=== PATIENT | female | born 1960 ===

== ENCOUNTER 2018-09-05 06:10 | Inpatient (IN) | payer MEDICARE ==
[2018-09-05] MEDS ORDERED: ATIVAN IV ONE (06:31)
[2018-09-05 06:52] LABS: Basophils # (Auto) 0.1 K/mm3 (0.0-0.1); Basophils % (Auto) 1.6 % (0.0-1.8); Eosinophils % (Auto) 0.2 % (0.0-4.3); Lymphocytes # (Auto) 2.8 K/mm3 (1.2-5.4); Lymphocytes % (Auto) 47.2 % (13.4-35.0); Mean Corpuscular HGB Conc 30 % (30-34); Mean Corpuscular Volume 71 fl (79-97); Monocytes # (Auto) 0.6 K/mm3 (0.0-0.8); Monocytes % (Auto) 9.6 % (0.0-7.3); Platelet Count 300 K/mm3 (140-440); Red Blood Count 4.93 M/mm3 (3.65-5.03)
[2018-09-05 06:53] LABS: Hemoglobin 10.5 gm/dl (10.1-14.3)
[2018-09-05 07:05] LABS: Alanine Aminotransferase 21 units/L (7-56); Albumin 3.4 g/dL (3.9-5); Bilirubin,Direct 0.4 mg/dL (0-0.2)
--- NOTE | 2018-09-05 07:13 | Emergency Department Report ---
ED General Adult HPI - General Chief complaint: Pain General Stated complaint: BODY PAIN X'S 1 WEEK Time Seen by Provider: 09/05/18 06:19 Source: patient, EMS Mode of arrival: Stretcher Limitations: No Limitations - History of Present Illness Initial comments: This is a type II diabetic history of hypertension 58-year-old woman who is a poor historian. She appears to have pressurized speech to some degree. She does admit to anxiety. She is not taking any psychiatric medications though. Perhaps she is noncompliant; family has stated that she has bipolar disorder. She is complaining of generalized weakness and difficulty caring for herself. She states she hasn't been unable to take a shower for 5 days. It seems like she may be saying that her urine output is diminished. However she is quite scattered and difficult to understand although she speaks [place] adequately. He does not report recent fever or chills. He does complain of some hurting all over. She denies chest or abdominal pain. She denies headache or any focal neurological changes. I think she is saying that she does have dyspnea on exertion. -: days(s) Consistency: intermittent Improves with: none Worsens with: none Associated Symptoms: shortness of breath, weakness. denies: confusion, chest pain, cough, diaphoresis, fever/chills, headaches, nausea/vomiting, rash, seizure, syncope - Related Data Allergies Allergy/AdvReac Type Severity Reaction Status Date / Time No Known Allergies Allergy Unverified 09/05/18 06:20 ED Review of Systems ROS: Stated complaint: BODY PAIN X'S 1 WEEK Other details as noted in HPI Constitutional: weakness. denies: chills, fever Eyes: denies: eye pain, eye discharge, vision change ENT: denies: ear pain, throat pain Respiratory: SOB with exertion. denies: cough, shortness of breath, wheezing Cardiovascular: denies: chest pain, palpitations Endocrine: no symptoms reported Gastrointestinal: denies: abdominal pain, nausea, diarrhea Genitourinary: denies: urgency, dysuria, discharge Musculoskeletal: as per HPI (some allodynia). denies: back pain, joint swelling, arthralgia Skin: denies: rash, lesions Neurological: denies: headache, weakness, paresthesias Psychiatric: denies: anxiety, depression Hematological/Lymphatic: denies: easy bleeding, easy bruising ED Past Medical Hx - Past Medical History Previous Medical History?: Yes Hx Hypertension: Yes Hx Congestive Heart Failure: Yes Hx Diabetes: Yes Hx Psychiatric Treatment: Yes (Per family bipolar) - Surgical History Past Surgical History?: No - Social History Smoking Status: Never Smoker Substance Use Type: None ED Physical Exam - General Limitations: No Limitations General appearance: alert, in no apparent distress, anxious - Head Head exam: Present: atraumatic, normocephalic - Eye Eye exam: Present: normal appearance. Absent: scleral icterus - ENT ENT exam: Present: mucous membranes moist - Neck Neck exam: Present: normal inspection - Respiratory Respiratory exam: Present: normal lung sounds bilaterally. Absent: respiratory distress - Cardiovascular Cardiovascular Exam: Present: regular rate, normal rhythm. Absent: systolic murmur, diastolic murmur, rubs, gallop - GI/Abdominal GI/Abdominal exam: Present: soft, normal bowel sounds. Absent: distended, tenderness, guarding, rebound, rigid - Extremities Exam Extremities exam: Present: normal inspection - Back Exam Back exam: Present: normal inspection. Absent: CVA tenderness (R) - Neurological Exam Neurological exam: Present: alert, oriented X3, CN II-XII intact. Absent: motor sensory deficit - Psychiatric Psychiatric exam: Present: anxious, flat affect - Skin Skin exam: Present: warm, dry, intact, normal color. Absent: rash ED Course Vital Signs 09/05/18 09/05/18 06:23 07:31 Temperature 97.9 F Pulse Rate 99 H 93 H Respiratory 20 18 Rate Blood Pressure 152/100 140/99 [Right] O2 Sat by Pulse 98 98 Oximetry - Reevaluation(s) Reevaluation #1: Attempting to obtain patient's medications. Elevated INR noted. Presume on Coumadin. Patient given empiric Violence although there is not yet any signs of a source or a SIRS syndrome. Repeat lactic acid of the value. There were problems with the patient's initial blood specimen. Hospitalist informed. CT abdomen is obtained for further screening for a source of infection. Patient declined straight cath for urinalysis. Further care and management per spitalist service. 09/05/18 08:55 ED Medical Decision Making - Lab Data Result diagrams: 09/05/18 06:26 09/05/18 06:26 Laboratory Results - last 24 hr 06/09/05/18 09/05/18 06:26 06:26 06:26 WBC 5.9 RBC 4.93 Hgb 10.5 Hct 35.0 MCV 71 L MCH 21 L MCHC 30 RDW 22.0 H Plt Count 300 Lymph % (Auto) 47.2 H [place] % (Auto) 9.6 H Eos % (Auto) 0.2 Baso % (Auto) 1.6 Lymph # 2.8 [place] # 0.6 Eos # 0.0 Baso # 0.1 Seg Neutrophils % 41.4 Seg Neutrophils # 2.4 Sodium 127 L Chloride 92.4 L BUN 11 Creatinine 0.8 Estimated GFR > 60 BUN/Creatinine Ratio 14 Glucose 417 H Calcium 8.5 Magnesium Total Bilirubin Direct Bilirubin Indirect Bilirubin AST ALT Alkaline Phosphatase CK-MB (CK-2) 1.7 Troponin T NT-Pro-B Natriuret Pep Total Protein Albumin Albumin/Globulin Ratio Plasma/Serum Alcohol < 0.01 09/05/18 06:26 WBC RBC Hgb Hct MCV MCH MCHC RDW Plt Count Lymph % (Auto) [place] % (Auto) Eos % (Auto) Baso % (Auto) Lymph # [place] # Eos # Baso # Seg Neutrophils % Seg Neutrophils # Sodium Chloride BUN Creatinine Estimated GFR BUN/Creatinine Ratio Glucose Calcium Magnesium 2.10 Total Bilirubin 1.00 Direct Bilirubin 0.4 H Indirect Bilirubin 0.6 AST 144 H ALT 21 Alkaline Phosphatase 74 CK-MB (CK-2) Troponin T < 0.010 NT-Pro-B Natriuret Pep 70277 H Total Protein 8.2 Albumin 3.4 L Albumin/Globulin Ratio 0.7 Plasma/Serum Alcohol Laboratory Results - last 24 hr 09/05/18 09/05/18 09/05/18 06:26 06:26 06:26 WBC 5.9 RBC 4.93 Hgb 10.5 Hct 35.0 MCV 71 L MCH 21 L MCHC 30 RDW 22.0 H Plt Count 300 Lymph % (Auto) 47.2 H [place] % (Auto) 9.6 H Eos % (Auto) 0.2 Baso % (Auto) 1.6 Lymph # 2.8 [place] # 0.6 Eos # 0.0 Baso # 0.1 Seg Neutrophils % 41.4 Seg Neutrophils # 2.4 PT INR APTT Sodium TNR Potassium TNR Chloride TNR Carbon Dioxide TNR Anion Gap TNR BUN TNR Creatinine TNR Estimated GFR TNR BUN/Creatinine Ratio TNR Glucose TNR Lactic Acid Calcium TNR Magnesium Total Bilirubin Direct Bilirubin Indirect Bilirubin AST ALT Alkaline Phosphatase Ammonia Total Creatine Kinase TNR CK-MB (CK-2) TNR CK-MB (CK-2) Rel Index TNR Troponin T NT-Pro-B Natriuret Pep Total Protein Albumin Albumin/Globulin Ratio Plasma/Serum Alcohol < 0.01 09/05/18 09/05/18 09/05/18 06:26 06:34 06:34 WBC RBC Hgb Hct MCV MCH MCHC RDW Plt Count Lymph % (Auto) [place] % (Auto) Eos % (Auto) Baso % (Auto) Lymph # [place] # Eos # Baso # Seg Neutrophils % Seg Neutrophils # PT 23.8 H INR 2.18 H APTT 31.2 Sodium Potassium Chloride Carbon Dioxide Anion Gap BUN Creatinine Estimated GFR BUN/Creatinine Ratio Glucose Lactic Acid Calcium Magnesium 2.10 Total Bilirubin 1.00 Direct Bilirubin 0.4 H Indirect Bilirubin 0.6 AST 144 H ALT 21 Alkaline Phosphatase 74 Ammonia 26.0 Total Creatine Kinase CK-MB (CK-2) CK-MB (CK-2) Rel Index Troponin T < 0.010 NT-Pro-B Natriuret Pep 57522 H Total Protein 8.2 Albumin 3.4 L Albumin/Globulin Ratio 0.7 Plasma/Serum Alcohol 09/05/18 06:34 WBC RBC Hgb Hct MCV MCH MCHC RDW Plt Count Lymph % (Auto) [place] % (Auto) Eos % (Auto) Baso % (Auto) Lymph # [place] # Eos # Baso # Seg Neutrophils % Seg Neutrophils # PT INR APTT Sodium Potassium Chloride Carbon Dioxide Anion Gap BUN Creatinine Estimated GFR BUN/Creatinine Ratio Glucose Lactic Acid 7.40 H* Calcium Magnesium Total Bilirubin Direct Bilirubin Indirect Bilirubin AST ALT Alkaline Phosphatase Ammonia Total Creatine Kinase CK-MB (CK-2) CK-MB (CK-2) Rel Index Troponin T NT-Pro-B Natriuret Pep Total Protein Albumin Albumin/Globulin Ratio Plasma/Serum Alcohol Laboratory Results - last 24 hr 09/05/18 09/05/18 09/05/18 06:26 06:26 06:26 WBC 5.9 RBC 4.93 Hgb 10.5 Hct 35.0 MCV 71 L MCH 21 L MCHC 30 RDW 22.0 H Plt Count 300 Lymph % (Auto) 47.2 H [place] % (Auto) 9.6 H Eos % (Auto) 0.2 Baso % (Auto) 1.6 Lymph # 2.8 [place] # 0.6 Eos # 0.0 Baso # 0.1 Seg Neutrophils % 41.4 Seg Neutrophils # 2.4 PT INR APTT Sodium TNR Potassium TNR Chloride TNR Carbon Dioxide TNR Anion Gap TNR BUN TNR Creatinine TNR Estimated GFR TNR BUN/Creatinine Ratio TNR Glucose TNR Lactic Acid Calcium TNR Magnesium Total Bilirubin Direct Bilirubin Indirect Bilirubin AST ALT Alkaline Phosphatase Ammonia Total Creatine Kinase TNR CK-MB (CK-2) TNR CK-MB (CK-2) Rel Index TNR Troponin T NT-Pro-B Natriuret Pep Total Protein Albumin Albumin/Globulin Ratio Plasma/Serum Alcohol < 0.01 09/05/18 09/05/18 09/05/18 06:26 06:26 06:26 WBC RBC Hgb Hct MCV MCH MCHC RDW Plt Count Lymph % (Auto) [place] % (Auto) Eos % (Auto) Baso % (Auto) Lymph # [place] # Eos # Baso # Seg Neutrophils % Seg Neutrophils # PT INR APTT Sodium 134 L Potassium 5.5 H Chloride 94.8 L Carbon Dioxide 21 L Anion Gap 24 BUN 11 Creatinine 0.6 L Estimated GFR > 60 BUN/Creatinine Ratio 18 Glucose 395 H Lactic Acid Calcium 8.8 Magnesium 2.10 Total Bilirubin 1.00 Direct Bilirubin 0.4 H Indirect Bilirubin 0.6 AST 144 H ALT 21 Alkaline Phosphatase 74 Ammonia Total Creatine Kinase 62 CK-MB (CK-2) 1.7 CK-MB (CK-2) Rel Index 2.7 Troponin T < 0.010 NT-Pro-B Natriuret Pep 79102 H Total Protein 8.2 Albumin 3.4 L Albumin/Globulin Ratio 0.7 Plasma/Serum Alcohol 09/05/18 09/05/18 09/05/18 06:34 06:34 06:34 WBC RBC Hgb Hct MCV MCH MCHC RDW Plt Count Lymph % (Auto) [place] % (Auto) Eos % (Auto) Baso % (Auto) Lymph # [place] # Eos # Baso # Seg Neutrophils % Seg Neutrophils # PT 23.8 H INR 2.18 H APTT 31.2 Sodium Potassium Chloride Carbon Dioxide Anion Gap BUN Creatinine Estimated GFR BUN/Creatinine Ratio Glucose Lactic Acid 7.40 H* Calcium Magnesium Total Bilirubin Direct Bilirubin Indirect Bilirubin AST ALT Alkaline Phosphatase Ammonia 26.0 Total Creatine Kinase CK-MB (CK-2) CK-MB (CK-2) Rel Index Troponin T NT-Pro-B Natriuret Pep Total Protein Albumin Albumin/Globulin Ratio Plasma/Serum Alcohol - EKG Data -: EKG Interpreted by Me EKG shows normal: sinus rhythm, axis, intervals, QRS complexes, ST-T waves Rate: normal - EKG Data Interpretation: other (lateral T-wave inversion) - Radiology Data Radiology results: image reviewed (major cardiomegaly with bilateral pleural effusions) Critical care attestation.: If time is entered above; I have spent that time in minutes in the direct care of this critically ill patient, excluding procedure time. ED Disposition Clinical Impression: Hyperkalemia, Lactic acidosis Congestive heart failure Qualifiers: Heart failure type: biventricular Qualified Code(s): I50.82 - Biventricular heart failure Hyperglycemia due to type 2 diabetes mellitus Qualifiers: Diabetes mellitus production administrative assistant insulin use: with production administrative assistant use Qualified Code(s): E11.65 - Type 2 diabetes mellitus with hyperglycemia; Z79.4 - MCFP (current) use of insulin Disposition: OP ADMIT IP TO THIS HOSP Is pt being admited?: Yes Does the pt Need Aspirin: Yes Condition: Stable Instructions: Diabetes Mellitus Type 2 in Adults (ED) Referrals: INO BURCH MD [Primary Care Provider] - 3-5 Days Time of Disposition: 08:56
[2018-09-05] MEDS ORDERED: NACL 0.9% 1000 ML 1,000 ML IV ONE (07:15)
[2018-09-05 07:27] LABS: INR 2.18 (0.87-1.13)
[2018-09-05 07:28] LABS: Partial Thromboplastin Time 31.2 Sec. (24.2-36.6)
--- NOTE | 2018-09-05 07:48 | XRay Report ---
PROCEDURE: XR CHEST 1V AP TECHNIQUE: Chest radiograph single view. HISTORY: hypertension COMPARISONS: None . FINDINGS: Heart: Heart is enlarged.. Mediastinum/Vessels: Normal. Lungs/Pleural space: There is a right lower lobe infiltrate and effusion. There is no pneumothorax.. Bony thorax: No acute osseous abnormality. Life support devices: None. IMPRESSION: Heart is enlarged.. There is a right lower lobe infiltrate and effusion. There is no pneumothorax... This document is electronically signed by Josafat Acharya MD., September 05 2018 07:46:08 AM ET
[2018-09-05 08:09] LABS: Blood Urea Nitrogen TNR mg/dL (7-17)
[2018-09-05 08:10] LABS: BUN/Creatinine Ratio TNR; Calcium TNR mg/dL (8.4-10.2); Creatine Kinase MB TNR ng/mL (0.0-4.0); Hemolysis Index TNR
[2018-09-05 08:30] LABS: BUN/Creatinine Ratio 18; Blood Urea Nitrogen 11 mg/dL (7-17); Calcium 8.8 mg/dL (8.4-10.2); Hemolysis Index 2
[2018-09-05 08:32] LABS: Creatine Kinase MB 1.7 ng/mL (0.0-4.0)
[2018-09-05] MEDS ORDERED: HumuLIN R IV ONE (08:47)
[2018-09-05] MEDS ORDERED: LASIX IV ONE (08:47)
[2018-09-05] MEDS ORDERED: BABY ASPIRIN PO ONE (08:57)
[2018-09-05] MEDS ORDERED: MERREM 1,000 MG in NACL 0.9% 100 ML IV ONE (08:58)
[2018-09-05] MEDS ORDERED: SODIUM CHLORIDE FLUSH SYRINGE 10 ML IV PRN (08:59)
[2018-09-05] MEDS ORDERED: TYLENOL PO PRN (08:59)
[2018-09-05] MEDS ORDERED: ZOFRAN IV PRN (08:59)
[2018-09-05] MEDS ORDERED: VANCOMYCIN PHARMACY TO DOSE IV SCH (09:00)
[2018-09-05] MEDS ORDERED: COREG PO NR (09:02)
[2018-09-05] MEDS ORDERED: D50W (25GM) Syringe IV PRN (09:04)
--- NOTE | 2018-09-05 09:08 | History and Physical Report ---
History of Present Illness Date of examination: 09/06/18 Date of admission: 09/06/18 Chief complaint: generalized weakness History of present illness: 58 Year old female presenting to the ED via EMS with complaints of 1 week duration of generalized body pain, reportedly has been out of metformin for about a week. She was noted to have Blood glucose of over 400 on presentation with lactic acid of 7 and no clinical indication of sepsis or infectious process. Patient is unable to provide me any adequate information on the reports that she moved to [place] 3 years ago to stay with family and and the [place] for 3 years and has not been unable to get in touch with her children who live in [place]. She reports that for the past 1 week she has been having generalized body pain in the family she stays with have not been able to provide her medications despite her given the money to buy the medication. Unfortunately there is nobody presents here with her. My information became to light following my evaluation of the patient as documented by cardiology. An noted below. ...history of schizophrenia was at [facility] after being transferred from [facility] for inpatient psychiatry patient is found to have moderate LV dysfunction on echocardiogram EF 35% with mild mitral regurgitation mild tricuspid regurgitation and no aortic regurgitation 04/2018 and patient was treated medically with beta blockers CRISTINA inhibitor and diuretics patient is also on psychiatric medicine for inpatient care. Patient is also an uncontrolled diabetic troponins there were elevated but here are negative. Patient is a poor historian and history is obtained from EMS and hospitalization at [facility]. Patient states some hurting all over and found elevated blood sugar and elevated lactic acid level unclear source of infection patient is on broad-spectrum antibiotics. Patient also has some shortness of breath and treated for acute systolic heart failure. Denies any chest pain nausea vomiting or syncope. since discharge from [facility], pt is placed on eliquis for right upper arm dvt Past History Past Medical History: CAD, diabetes, DVT (right upper arm), hypertension, hyperlipidemia Past Surgical History: No surgical history Social history: no significant social history Medications and Allergies Allergies Allergy/AdvReac Type Severity Reaction Status Date / Time No Known Allergies Allergy Unverified 09/05/18 06:20 Home Medications Medication Instructions Recorded Confirmed Last Taken Type Apixaban [Eliquis] 5 mg PO DAILY 09/05/18 09/05/18 Unknown History Carvedilol [Coreg] 6.25 mg PO BID 09/05/18 09/05/18 Unknown History Furosemide [Lasix TAB] 40 mg PO QDAY 09/05/18 09/05/18 Unknown History Gabapentin [Neurontin] 100 mg PO BID 09/05/18 09/05/18 Unknown History Metformin HCl [metFORMIN] 1,000 mg PO BID 09/05/18 09/05/18 Unknown History Active Meds: Active Medications Acetaminophen (Tylenol) 650 mg PO Q4H PRN PRN Reason: Pain MILD(1-3)/Fever >100.5/BREWER Sodium Chloride (Nacl 0.9% 1000 Ml) 1,000 mls @ 125 mls/hr IV ONCE ONE Stop: 09/05/18 15:14 Last Admin: 09/05/18 07:45 Dose: 125 mls/hr Documented by: Meropenem 1,000 mg/ Sodium (Chloride) 100 mls @ 100 mls/hr IV ONCE ONE Stop: 09/05/18 09:57 Ondansetron HCl (Zofran) 4 mg IV Q8H PRN PRN Reason: Nausea And Vomiting Sodium Chloride (Sodium Chloride Flush Syringe 10 Ml) 10 ml IV BID BLANQUITA Sodium Chloride (Sodium Chloride Flush Syringe 10 Ml) 10 ml IV PRN PRN PRN Reason: LINE FLUSH Review of Systems All systems: negative Cardiovascular: no chest pain, no orthopnea, no palpitations, no rapid/irregular heart beat, no edema, no syncope, no lightheadedness, no shortness of breath, no dyspnea on exertion, no paroxysmal nocturnal dyspnea, no claudication, no phlebitis, no high blood pressure, no leg edema Musculoskeletal: low back pain, muscle weakness Exam - Physical Exam Narrative exam: VITAL SIGNS: Reviewed. GENERAL: The patient appeared well nourished and normally developed, Vital signs as documented. HEAD: No signs of head trauma. EYES: Pupils are equal. Extraocular motions intact. EARS: Hearing grossly intact. MOUTH: Oropharynx is normal. NECK: No adenopathy, no JVD. CHEST: Chest with clear breath sounds bilaterally. No wheezes, rales, or rhonchi. CARDIAC: Regular rate and rhythm. S1 and S2, without murmurs, gallops, or rubs. VASCULAR: No Edema. Peripheral pulses normal and equal in all extremities. ABDOMEN: Soft, non tender and non distended. No rebound or guarding, and no masses palpated. Bowel Sounds normal. MUSCULOSKELETAL: Good range of motion of all major joints. Extremities without clubbing, cyanosis or edema. NEUROLOGIC EXAM: Alert and oriented x 2 speech is scattered and often tangential No focal sensory or strength deficits. Speech normal. Follows commands. PSYCHIATRIC: Mood normal. SKIN: No rash or lesions. - Constitutional Vitals: Temp Pulse Resp BP Pulse Ox 97.9 F 93 H 18 140/99 98 09/05/18 06:23 09/05/18 07:31 09/05/18 07:31 09/05/18 07:31 09/05/18 07:31 Results - Labs CBC & Chem 7: 09/05/18 06:26 09/05/18 12:30 Labs: Laboratory Last Values WBC 5.9 K/mm3 (4.5-11.0) 09/05/18 06:26 RBC 4.93 M/mm3 (3.65-5.03) 09/05/18 06:26 Hgb 10.5 gm/dl (10.1-14.3) 09/05/18 06:26 Hct 35.0 % (30.3-42.9) 09/05/18 06:26 MCV 71 fl (79-97) L 09/05/18 06:26 MCH 21 pg (28-32) L 09/05/18 06:26 MCHC 30 % (30-34) 09/05/18 06:26 RDW 22.0 % (13.2-15.2) H 09/05/18 06:26 Plt Count 300 K/mm3 (140-440) 09/05/18 06:26 Lymph % (Auto) 47.2 % (13.4-35.0) H 09/05/18 06:26 [place] % (Auto) 9.6 % (0.0-7.3) H 09/05/18 06:26 Eos % (Auto) 0.2 % (0.0-4.3) 09/05/18 06:26 Baso % (Auto) 1.6 % (0.0-1.8) 09/05/18 06:26 Lymph # 2.8 K/mm3 (1.2-5.4) 09/05/18 06:26 [place] # 0.6 K/mm3 (0.0-0.8) 09/05/18 06:26 Eos # 0.0 K/mm3 (0.0-0.4) 09/05/18 06:26 Baso # 0.1 K/mm3 (0.0-0.1) 09/05/18 06:26 Seg Neutrophils % 41.4 % (40.0-70.0) 09/05/18 06:26 Seg Neutrophils # 2.4 K/mm3 (1.8-7.7) 09/05/18 06:26 PT 23.8 Sec. (12.2-14.9) H 09/05/18 06:34 INR 2.18 (0.87-1.13) H 09/05/18 06:34 APTT 31.2 Sec. (24.2-36.6) 09/05/18 06:34 Sodium 134 mmol/L (137-145) L 09/05/18 06:26 Sodium TNR 09/05/18 06:26 Potassium 5.5 mmol/L (3.6-5.0) H 09/05/18 06:26 Potassium TNR 09/05/18 06:26 Chloride 94.8 mmol/L (98-107) L 09/05/18 06:26 Chloride TNR 09/05/18 06:26 Carbon Dioxide 21 mmol/L (22-30) L 09/05/18 06:26 Carbon Dioxide TNR 09/05/18 06:26 24 mmol/L 09/05/18 06:26 TNR 09/05/18 06:26 BUN 11 mg/dL (7-17) 09/05/18 06:26 BUN TNR 09/05/18 06:26 0.6 mg/dL (0.7-1.2) L 09/05/18 06:26 TNR 09/05/18 06:26 Estimated GFR > 60 ml/min 09/05/18 06:26 Estimated GFR TNR 09/05/18 06:26 18 % 09/05/18 06:26 TNR 09/05/18 06:26 Glucose 395 mg/dL (65-100) H 09/05/18 06:26 Glucose TNR 09/05/18 06:26 Lactic Acid 7.40 mmol/L (0.7-2.0) H* 09/05/18 06:34 Calcium 8.8 mg/dL (8.4-10.2) 09/05/18 06:26 Calcium TNR 09/05/18 06:26 Magnesium 2.10 mg/dL (1.7-2.3) 09/05/18 06:26 1.00 mg/dL (0.1-1.2) 09/05/18 06:26 0.4 mg/dL (0-0.2) H 09/05/18 06:26 0.6 mg/dL 09/05/18 06:26 AST 144 units/L (5-40) H 09/05/18 06:26 ALT 21 units/L (7-56) 09/05/18 06:26 74 units/L (35-129) 09/05/18 06:26 26.0 umol/L (25-60) 09/05/18 06:34 62 units/L (30-135) 09/05/18 06:26 TNR 09/05/18 06:26 CK-MB (CK-2) 1.7 ng/mL (0.0-4.0) 09/05/18 06:26 CK-MB (CK-2) TNR 09/05/18 06:26 CK-MB (CK-2) Rel Index 2.7 (0-4) 09/05/18 06:26 CK-MB (CK-2) Rel Index TNR 09/05/18 06:26 < 0.010 ng/mL (0.00-0.029) 09/05/18 06:26 NT-Pro-B Natriuret Pep 25232 pg/mL (0-900) H 09/05/18 06:26 8.2 g/dL (6.3-8.2) 09/05/18 06:26 3.4 g/dL (3.9-5) L 09/05/18 06:26 0.7 % 09/05/18 06:26 Plasma/Serum Alcohol < 0.01 % (0-0.07) 09/05/18 06:26 Assessment and Plan Assessment and plan: 58 Year old female presenting to the ED via EMS with complaints of 1 week duration of generalized body pain, reportedly has been out of metformin for about a week. She was noted to have Blood glucose of over 400 on presentation with lactic acid of 7 and no clinical indication of sepsis or infectious process. Patient is unable to provide me any adequate information on the reports that she moved to [place] 3 years ago to stay with family and and the [place] for 3 years and has not been unable to get in touch with her children who live in [place]. She reports that for the past 1 week she has been having generalized body pain in the family she stays with have not been able to provide her medications despite her given the money to buy the medication. Unfortunately there is nobody presents here with her. My information became to light following my evaluation of the patient as documented by cardiology. An noted below. ...history of schizophrenia was at [facility] after being transferred from [facility] for inpatient psychiatry patient is found to have moderate LV dysfunction on echocardiogram EF 35% with mild mitral regurgitation mild tricuspid regurgitation and no aortic regurgitation 04/2018 and patient was treated medically with beta blockers CRISTINA inhibitor and diuretics patient is also on psychiatric medicine for inpatient care. Patient is also an uncontrolled diabetic troponins there were elevated but here are negative. Patient is a poor historian and history is obtained from EMS and hospitalization at [facility]. Patient states some hurting all over and found elevated blood sugar and elevated lactic acid level unclear source of infection patient is on broad-spectrum antibiotics. Patient also has some shortness of breath and treated for acute systolic heart failure. Denies any chest pain nausea vomiting or syncope. since discharge from [facility], pt is placed on eliquis for right upper arm dvt ACUTE ON CHRONIC presumed combined Systolic AND Diastolic Congestive heart failure Hyperosmolar Non Ketotic Hyperglycemia Generalized weakness DM type 2 uncontrolled Lactic Acidosis Elevated AST ?Bipolar disorder Bilateral Pleural effusion Neuropathy secondary hypercoagulable state Hyperkalemia PLAN Admit to [facility] CHF protocol Cardiology consult PT/OT Case management for social media coordinator, will need discharge plan and also ascertain safe discharge. something about kids live in [place] and she has been here with remote family for 3 years instead of 3 months Psych consult for possible med management or initiation Patient vehemently refuses CT scan understands that the elevation of lactic acid could indicate ischemia and the associated risk Repeat K and glucose level Follow obtained cultures. will not give any further antibitotics obtain medical records ?why elevated INR DVT/GI prophy Advance Directives: Yes Plan of care discussed with patient/family: Yes
[2018-09-05] MEDS ORDERED: KIONEX PO NR (09:10)
[2018-09-05] MEDS ORDERED: HumuLIN R IV NR (09:10)
[2018-09-05] MEDS ORDERED: CALCIUM GLUCONATE 1,000 MG in NACL 0.9% 100 ML IV ONE (09:10)
[2018-09-05] MEDS ORDERED: VANCOMYCIN 1,750 MG in NACL 0.9% 500 ML 500 ML IV ONE (09:30)
[2018-09-05] MEDS ORDERED: ALDACTONE PO SCH (10:00)
[2018-09-05] MEDS ORDERED: LASIX ONE (10:19)
[2018-09-05] MEDS ORDERED: COREG ONE (10:20)
[2018-09-05] MEDS ORDERED: BABY ASPIRIN ONE (10:20)
[2018-09-05] MEDS ORDERED: HumuLIN R ONE (10:22)
--- NOTE | 2018-09-05 11:21 | Consultation ---
History of Present Illness Consult date: 09/05/18 Requesting physician: GENIE BENTLEY Consult reason: congestive heart failure History of present illness: 58-year-old [place] female history of schizophrenia was at [facility] after being transferred from [facility] for inpatient psychiatry patient is found to have moderate LV dysfunction on echocardiogram EF 35% with mild mitral regurgitation mild tricuspid regurgitation and no aortic regurgitation 04/2018 and patient was treated medically with beta blockers HAIM inhibitor and diuretics patient is also on psychiatric medicine for inpatient care. Patient is also an uncontrolled diabetic troponins there were elevated but here are negative. Patient is a poor historian and history is obtained from EMS and hospitalization at [place]. Patient states some hurting all over and found elevated blood sugar and elevated lactic acid level unclear source of infection patient is on broad-spectrum antibiotics. Patient also has some shortness of breath and treated for acute systolic heart failure. Denies any chest pain nausea vomiting or syncope. since discharge from [facility] [place], pt is placed on eliquis for right upper arm dvt Past History Past Medical History: diabetes, DVT (right upper arm), heart failure, hypertension, hyperlipidemia, other Past Surgical History: denies: No surgical history Social history: denies: no significant social history Family history: denies: no significant family history Medications and Allergies Allergies Allergy/AdvReac Type Severity Reaction Status Date / Time No Known Allergies Allergy Unverified 09/05/18 06:20 Home Medications Medication Instructions Recorded Confirmed Last Taken Type Apixaban [Eliquis] 5 mg PO DAILY 09/05/18 09/05/18 Unknown History Carvedilol [Coreg] 6.25 mg PO BID 09/05/18 09/05/18 Unknown History Furosemide [Lasix TAB] 40 mg PO QDAY 09/05/18 09/05/18 Unknown History Gabapentin [Neurontin] 100 mg PO BID 09/05/18 09/05/18 Unknown History Metformin HCl [metFORMIN] 1,000 mg PO BID 09/05/18 09/05/18 Unknown History Active Meds: Active Medications Acetaminophen (Tylenol) 650 mg PO Q4H PRN PRN Reason: Pain MILD(1-3)/Fever >100.5/BREWER Apixaban (Eliquis) 5 mg PO Q12HR BLANQUITA; Protocol Carvedilol (Coreg) 6.25 mg PO ONCE NR Stop: 09/05/18 11:30 Carvedilol (Coreg) 6.25 mg PO BID BLANQUITA Dextrose (D50w (25gm) Syringe) 50 ml IV PRN PRN PRN Reason: Hypoglycemia Furosemide (Lasix) 40 mg IV 0600,1800 BLANQUITA Gabapentin (Neurontin) 100 mg PO Q8HR BLANQUITA Sodium Chloride (Nacl 0.9% 1000 Ml) 1,000 mls @ 125 mls/hr IV ONCE ONE Stop: 09/05/18 15:14 Last Admin: 09/05/18 07:45 Dose: 125 mls/hr Documented by: Vancomycin HCl 1,250 mg/ (Sodium Chloride) 275 mls @ 166.667 mls/hr IV Q12H BLANQUITA Insulin Glargine (Lantus) 20 units SUB-Q QHS BLANQUITA Insulin Human Lispro (Humalog) 0 unit SUB-Q ACHS BLANQUITA; Protocol Ondansetron HCl (Zofran) 4 mg IV Q8H PRN PRN Reason: Nausea And Vomiting Sodium Chloride (Sodium Chloride Flush Syringe 10 Ml) 10 ml IV BID BLANQUITA Sodium Chloride (Sodium Chloride Flush Syringe 10 Ml) 10 ml IV PRN PRN PRN Reason: LINE FLUSH Sodium Polystyrene Sulfonate (Kionex) 30 gm PO ONCE NR Stop: 09/05/18 11:30 Physical Examination Vital Signs Pulse Ox 91 09/05/18 06:18 Results 09/05/18 06:26 09/05/18 06:26 Cardiac Enzymes 09/05/18 09/05/18 09/05/18 Range/Units 06:26 06:26 06:26 AST 144 H (5-40) units/L CK-MB (CK-2) TNR 1.7 Coagulation 09/05/18 Range/Units 06:34 PT 23.8 H (12.2-14.9) Sec. INR 2.18 H (0.87-1.13) APTT 31.2 (24.2-36.6) Sec. CBC 09/05/18 Range/Units 06:26 WBC 5.9 (4.5-11.0) K/mm3 RBC 4.93 (3.65-5.03) M/mm3 Hgb 10.5 (10.1-14.3) gm/dl Hct 35.0 (30.3-42.9) % Plt Count 300 (140-440) K/mm3 Lymph # 2.8 (1.2-5.4) K/mm3 [place] # 0.6 (0.0-0.8) K/mm3 Eos # 0.0 (0.0-0.4) K/mm3 Baso # 0.1 (0.0-0.1) K/mm3 Comprehensive Metabolic Panel 09/05/18 09/05/18 09/05/18 Range/Units 06:26 06:26 06:26 Sodium TNR 134 L Potassium TNR 5.5 H Chloride TNR 94.8 L Carbon Dioxide TNR 21 L BUN TNR 11 Creatinine TNR 0.6 L Glucose TNR 395 H Calcium TNR 8.8 Direct Bilirubin 0.4 H (0-0.2) mg/dL Indirect Bilirubin 0.6 mg/dL AST 144 H (5-40) units/L ALT 21 (7-56) units/L Alkaline Phosphatase 74 (35-129) units/L Total Protein 8.2 (6.3-8.2) g/dL Albumin 3.4 L (3.9-5) g/dL - Imaging and Cardiology Echo: report reviewed (04/2018 EF 35% with mild mitral regurgitation mild tricusp id regurgitation and no aortic regurgitation) EKG interpretations - Telemetry EKG Rhythm: Sinus Rhythm (normal sinus rhythm nonspecific ST-T's) Assessment and Plan Acute on chronic systolic heart failure Uncontrolled diabetes Suspected sepsis with elevated lactate Hyperkalemia renal sufficiency acute on chronic Schizophrenia Hypertension Hyperlipidemia Right arm DVT Recommend continuing IV Lasix hold Haim and ARB in view of hyperkalemia. Aldactone continue carvedilol and monitor labs. Patient is being treated for suspected sepsis per primary care.
[2018-09-05] MEDS: SODIUM CHLORIDE FLUSH SYRINGE 10 ML IV SCH ×2 (13:25→22:33)
[2018-09-05] MEDS: ELIQUIS PO SCH ×2 (13:25→22:32)
[2018-09-05] MEDS: HumaLOG SUB-Q SCH ×3 (13:33→22:43)
[2018-09-05] MEDS: NEURONTIN PO SCH ×2 (14:42→22:32)
[2018-09-05] MEDS: LASIX IV SCH (19:40)
[2018-09-05] MEDS ORDERED: LANTUS SUB-Q SCH (22:00)
[2018-09-05] MEDS: COREG PO SCH (22:32)
[2018-09-06 01:32] LABS: Amorphous Crystals,Urine Few; Bacteria,Urine 1+ /HPF (Negative); Bilirubin,Urine NEG (Negative); Blood,Urine NEG (Negative); Color,Urine Straw (Yellow); Mucus,Urine FEW /HPF; Protein,Urine <15 mg/dL mg/dL (Negative); Urobilinogen,Urine < 2.0 mg/dL (<2.0); WBC,Urine < 1.0 /HPF (0.0-6.0)
[2018-09-06 01:52] LABS: Amphetamine Screen,Urine PRESUMPTIVE NEGATIVE; Benzodiazepines Screen,Urine PRESUMPTIVE NEGATIVE; Cannabinoid Screen,Urine PRESUMPTIVE NEGATIVE; Cocaine Screen,Urine PRESUMPTIVE NEGATIVE; Methadone Screen,Urine PRESUMPTIVE NEGATIVE; Opiate Screen,Urine PRESUMPTIVE NEGATIVE
[2018-09-06] MEDS ORDERED: VANCOMYCIN 1,250 MG in NACL 0.9% 250ML 250 ML IV SCH (03:00)
[2018-09-06] MEDS: LASIX IV SCH (06:52)
[2018-09-06] MEDS: NEURONTIN PO SCH ×3 (06:52→23:43)
[2018-09-06] MEDS ORDERED: HumuLIN R SUB-Q NR (07:25)
--- NOTE | 2018-09-06 08:37 | Progress Note ---
Assessment and Plan Assessment and plan: 58 Year old female presenting to the ED via EMS with complaints of 1 week duration of generalized body pain, reportedly has been out of metformin for about a week. She was noted to have Blood glucose of over 400 on presentation with lactic acid of 7 and no clinical indication of sepsis or infectious proc ess. Patient is unable to provide me any adequate information on the reports that she moved to [place] 3 years ago to stay with family and and the [place] for 3 years and has not been unable to get in touch with her children who live in [place]. She reports that for the past 1 week she has been having generalized body pain in the family she stays with have not been able to provide her medications de spite her given the money to buy the medication. Unfortunately there is nobody presents here with her. My information became to light following my evaluation of the patient as documented by cardiology. An noted below. ...history of schizophrenia was at [facility] after being transfer red from [facility] for inpatient psychiatry patient is found to have moderate LV dysfunction on echocardiogram EF 35% with mild mitral regurgitation mild tricuspid regurgitation and no aortic regurgitation 04/2018 and patient was treated medically with beta blockers CRISTINA inhibitor and diuretics patient is also on psychiatric medicine for inpatient care. Patient is also an uncontrolled diabetic troponins there were elevated but here are negative. Patient is a poor historian and history is obtained from EMS and hospitalization at [place]. Patient states some hurting all over and found elevated blood sugar and elevated lactic acid level unclear source of infection patient is on broad-spectrum antibiotics. Patient also has some shortness of breath and treated for acute systolic heart failure. Denies any chest pain nausea vomiting or syncope. since discharge from [place], pt is placed on eliquis for right upper arm dvt ACUTE ON CHRONIC presumed combined Systolic AND Diastolic Congestive heart failure Hyperosmolar Non-Ketotic Hyperglycemia Generalized weakness DM type 2 uncontrolled Lactic Acidosis Elevated AST ?Bipolar disorder Bilateral Pleural effusion Neuropathy Secondary hypercoagulable state Hyperkalemia PLAN Continue supportive care Cardiology consult and noted Continue Diuresis Await Mental Health evaluation Medication list obtained by cutch cleaner and by us from patient appear to be different Adjust lantus to 25 units Give additional insulin 10units subq PT/OT Case management for social sciences chair, will need discharge plan and also ascertain safe discharge. something about kids live in [place] and she has been here with remote family for 3 years instead of 3 months Psych consult for possible med management or initiation Patient vehemently refuses CT scan understands that the elevation of lactic acid could indicate ischemia and the associated risk ?why elevated INR DVT/GI prophy History Interval history: Patient seen and examined, Resting comfortable in no acute distress. Hospitalist Physical - Physical exam Narrative exam: VITAL SIGNS: Reviewed. GENERAL: The patient appeared well nourished and normally developed, Vital signs as documented. HEAD: No signs of head trauma. EYES: Pupils are equal. Extraocular motions intact. EARS: Hearing grossly intact. MOUTH: Oropharynx is normal. NECK: No adenopathy, no JVD. CHEST: Chest with clear breath sounds bilaterally. No wheezes, rales, or rhonchi. CARDIAC: Regular rate and rhythm. S1 and S2, without murmurs, gallops, or rubs. VASCULAR: No Edema. Peripheral pulses normal and equal in all extremities. ABDOMEN: Soft, non tender and non distended. No rebound or guarding, and no masses palpated. Bowel Sounds normal. MUSCULOSKELETAL: Good range of motion of all major joints. Extremities without clubbing, cyanosis or edema. NEUROLOGIC EXAM: Alert and oriented x 2 speech is scattered and often tangential No focal sensory or strength deficits. Speech normal. Follows commands. PSYCHIATRIC: Mood normal. SKIN: No rash or lesions. - Constitutional Vitals: Temp Pulse Resp BP Pulse Ox 98.0 F 81 20 108/78 100 09/06/18 05:34 09/06/18 05:33 09/06/18 05:33 09/06/18 05:33 09/06/18 05:33 Results - Labs CBC & Chem 7: 09/06/18 10:30 09/06/18 10:30 Labs: Laboratory Last Values WBC 5.9 K/mm3 (4.5-11.0) 09/05/18 06:26 RBC 4.93 M/mm3 (3.65-5.03) 09/05/18 06:26 Hgb 10.5 gm/dl (10.1-14.3) 09/05/18 06:26 Hct 35.0 % (30.3-42.9) 09/05/18 06:26 MCV 71 fl (79-97) L 09/05/18 06:26 MCH 21 pg (28-32) L 09/05/18 06:26 MCHC 30 % (30-34) 09/05/18 06:26 RDW 22.0 % (13.2-15.2) H 09/05/18 06:26 Plt Count 300 K/mm3 (140-440) 09/05/18 06:26 Lymph % (Auto) 47.2 % (13.4-35.0) H 09/05/18 06:26 [place] % (Auto) 9.6 % (0.0-7.3) H 09/05/18 06:26 Eos % (Auto) 0.2 % (0.0-4.3) 09/05/18 06:26 Baso % (Auto) 1.6 % (0.0-1.8) 09/05/18 06:26 Lymph # 2.8 K/mm3 (1.2-5.4) 09/05/18 06:26 [place] # 0.6 K/mm3 (0.0-0.8) 09/05/18 06:26 Eos # 0.0 K/mm3 (0.0-0.4) 09/05/18 06:26 Baso # 0.1 K/mm3 (0.0-0.1) 09/05/18 06:26 Seg Neutrophils % 41.4 % (40.0-70.0) 09/05/18 06:26 Seg Neutrophils # 2.4 K/mm3 (1.8-7.7) 09/05/18 06:26 PT 23.8 Sec. (12.2-14.9) H 09/05/18 06:34 INR 2.18 (0.87-1.13) H 09/05/18 06:34 APTT 31.2 Sec. (24.2-36.6) 09/05/18 06:34 Sodium 134 mmol/L (137-145) L 09/05/18 06:26 Sodium TNR 09/05/18 06:26 Potassium 4.5 mmol/L (3.6-5.0) 09/05/18 12:30 Chloride 94.8 mmol/L (98-107) L 09/05/18 06:26 Chloride TNR 09/05/18 06:26 Carbon Dioxide 21 mmol/L (22-30) L 09/05/18 06:26 Carbon Dioxide TNR 09/05/18 06:26 24 mmol/L 09/05/18 06:26 TNR 09/05/18 06:26 BUN 11 mg/dL (7-17) 09/05/18 06:26 BUN TNR 09/05/18 06:26 0.6 mg/dL (0.7-1.2) L 09/05/18 06:26 TNR 09/05/18 06:26 Estimated GFR > 60 ml/min 09/05/18 06:26 Estimated GFR TNR 09/05/18 06:26 18 % 09/05/18 06:26 TNR 09/05/18 06:26 Glucose 395 mg/dL (65-100) H 09/05/18 06:26 Glucose TNR 09/05/18 06:26 POC Glucose 285 (70-105) H 09/05/18 21:18 Lactic Acid 3.40 mmol/L (0.7-2.0) H* 09/05/18 23:05 Calcium 8.8 mg/dL (8.4-10.2) 09/05/18 06:26 Calcium TNR 09/05/18 06:26 Magnesium 2.10 mg/dL (1.7-2.3) 09/05/18 06:26 1.00 mg/dL (0.1-1.2) 09/05/18 06:26 0.4 mg/dL (0-0.2) H 09/05/18 06:26 0.6 mg/dL 09/05/18 06:26 AST 144 units/L (5-40) H 09/05/18 06:26 ALT 21 units/L (7-56) 09/05/18 06:26 74 units/L (35-129) 09/05/18 06:26 26.0 umol/L (25-60) 09/05/18 06:34 62 units/L (30-135) 09/05/18 06:26 TNR 09/05/18 06:26 CK-MB (CK-2) 1.7 ng/mL (0.0-4.0) 09/05/18 06:26 CK-MB (CK-2) TNR 09/05/18 06:26 CK-MB (CK-2) Rel Index 2.7 (0-4) 09/05/18 06:26 CK-MB (CK-2) Rel Index TNR 09/05/18 06:26 < 0.010 ng/mL (0.00-0.029) 09/05/18 06:26 NT-Pro-B Natriuret Pep 98004 pg/mL (0-900) H 09/05/18 06:26 8.2 g/dL (6.3-8.2) 09/05/18 06:26 3.4 g/dL (3.9-5) L 09/05/18 06:26 0.7 % 09/05/18 06:26 Straw (Yellow) 09/05/18 11:45 Clear (Clear) 09/05/18 11:45 7.0 (5.0-7.0) 09/05/18 11:45 Ur Specific [place] 1.005 (1.003-1.030) 09/05/18 11:45 <15 mg/dl mg/dL (Negative) 09/05/18 11:45 50 mg/dL (Negative) 09/05/18 11:45 Neg mg/dL (Negative) 09/05/18 11:45 Neg (Negative) 09/05/18 11:45 Neg (Negative) 09/05/18 11:45 Neg (Negative) 09/05/18 11:45 < 2.0 mg/dL (<2.0) 09/05/18 11:45 Ur Leukocyte Esterase Neg (Negative) 09/05/18 11:45 < 1.0 /HPF (0.0-6.0) 09/05/18 11:45 1.0 /HPF (0.0-6.0) 09/05/18 11:45 U Epithel Cells (Auto) < 1.0 /HPF (0-13.0) 09/05/18 11:45 1+ /HPF (Negative) 09/05/18 11:45 Amorphous Crystals Few 09/05/18 11:45 Few /HPF 09/05/18 11:45 Presumptive negative 09/05/18 11:45 Presumptive negative 09/05/18 11:45 Ur Barbiturates Screen Presumptive negative 09/05/18 11:45 Ur Phencyclidine Scrn Presumptive negative 09/05/18 11:45 Ur Amphetamines Screen Presumptive negative 09/05/18 11:45 U Benzodiazepines Scrn Presumptive negative 09/05/18 11:45 Presumptive negative 09/05/18 11:45 U Marijuana (THC) Screen Presumptive negative 09/05/18 11:45 Disclamer 09/05/18 11:45 Plasma/Serum Alcohol < 0.01 % (0-0.07) 09/05/18 06:26 Active Medications - Current Medications Current Medications: Generic Name Dose Route Start Last Admin Trade Name Freq PRN Reason Stop Dose Admin Acetaminophen 650 mg 09/05/18 08:59 Tylenol PO Q4H PRN Pain MILD(1-3)/Fever >100.5/BREWER Apixaban 5 mg 09/05/18 10:00 09/05/18 22:32 Eliquis PO 5 mg Q12HR BLANQUITA Administration Protocol Carvedilol 6.25 mg 09/05/18 22:00 09/05/18 22:32 Coreg PO 6.25 mg BID BLANQUITA Administration Dextrose 50 ml 09/05/18 09:04 D50w (25gm) Syringe IV PRN PRN Hypoglycemia Furosemide 40 mg 09/05/18 18:00 09/06/18 06:52 Lasix IV 40 mg 0600,1800 BLANQUITA Administration Gabapentin 100 mg 09/05/18 14:00 09/06/18 06:52 Neurontin PO 100 mg Q8HR BLANQUITA Administration Haloperidol 5 mg 09/06/18 10:00 Haldol PO DAILY [facility] Insulin Glargine 25 units 09/06/18 22:00 Lantus SUB-Q QHS [facility] Insulin Human Lispro 0 unit 09/05/18 11:30 09/05/18 22:43 Humalog SUB-Q 6 unit ACHS BLANQUITA Administration Protocol Insulin Human Regular 12 units 09/06/18 07:25 Humulin R SUB-Q 09/06/18 09:25 ONCE NR Ondansetron HCl 4 mg 09/05/18 08:59 Zofran IV Q8H PRN Nausea And Vomiting Sodium Chloride 10 ml 09/05/18 10:00 09/05/18 22:33 Sodium Chloride Flush Syringe 10 Ml IV 10 ml BID BLANQUITA Administration Sodium Chloride 10 ml 09/05/18 08:59 09/05/18 22:44 Sodium Chloride Flush Syringe 10 Ml IV 10 ml PRN PRN Administration LINE FLUSH
[2018-09-06] MEDS: HumaLOG SUB-Q SCH ×4 (09:42→23:47)
[2018-09-06] MEDS: ELIQUIS PO SCH ×2 (09:43→23:43)
[2018-09-06] MEDS: COREG PO SCH ×2 (09:43→23:44)
[2018-09-06] MEDS: HALDOL PO SCH (09:43)
[2018-09-06 10:57] LABS: Basophils % (Auto) 0.6 % (0.0-1.8); Eosinophils # (Auto) 0.1 K/mm3 (0.0-0.4); Lymphocytes # (Auto) 1.3 K/mm3 (1.2-5.4); Lymphocytes % (Auto) 28.1 % (13.4-35.0); Mean Corpuscular HGB Conc 30 % (30-34); Monocytes # (Auto) 0.5 K/mm3 (0.0-0.8); Monocytes % (Auto) 11.6 % (0.0-7.3); Platelet Count 261 K/mm3 (140-440); Red Blood Count 4.66 M/mm3 (3.65-5.03)
[2018-09-06 11:05] LABS: Hematocrit 32.6 % (30.3-42.9); Hemoglobin 9.8 gm/dl (10.1-14.3); Mean Corpuscular Volume 70 fl (79-97); Red Cell Distribution Width 21.3 % (13.2-15.2)
[2018-09-06 11:13] LABS: Alanine Aminotransferase 11 units/L (7-56); Albumin 2.6 g/dL (3.9-5); BUN/Creatinine Ratio 24; Blood Urea Nitrogen 12 mg/dL (7-17); Calcium 8.5 mg/dL (8.4-10.2); Hemolysis Index 13
--- NOTE | 2018-09-06 12:01 | Progress Note ---
Assessment and Plan Acute on chronic systolic heart failure Uncontrolled diabetes Suspected sepsis with elevated lactate Hyperkalemia renal sufficiency acute on chronic Schizophrenia Hypertension Hyperlipidemia Right arm DVT Recommend change to by mouth Lasix continue carvedilol will continue hold Haim and arb secondary to lower blood pressure. Patient is being treated for elevated lactic acid level patient is compensated systolic heart failure Subjective Date of service: 09/06/18 Principal diagnosis: chf Interval history: pt lying down no sob and feeling better Objective Vital Signs Temp Pulse Resp BP Pulse Ox 09/06/18 05:34 98.0 F 09/06/18 05:33 81 20 108/78 100 09/06/18 02:55 81 09/05/18 23:55 97.6 F 09/05/18 23:45 84 20 128/64 100 09/05/18 22:32 91 H 141/73 09/05/18 19:41 97.3 F L 09/05/18 19:35 91 H 22 141/73 96 09/05/18 16:56 88 134/84 100 - Physical Examination General: Appears Well, No Apparent Distress HEENT: Positive: PERRL Neck: Positive: neck supple Cardiac: Positive: Reg Rate and Rhythm Lungs: Positive: clear to auscultation Neuro: Positive: Grossly Intact Abdomen: Positive: Soft /Rectal: Normal Prostate, No Masses Skin: Musculoskeletal: No Fluid Collection, No Pain, Normal Range of Motion Gait: Normal Gait Extremities: - Labs and Meds Cardiac Enzymes 09/06/18 Range/Units 10:30 AST 22 (5-40) units/L CBC 09/06/18 Range/Units 10:30 WBC 4.7 (4.5-11.0) K/mm3 RBC 4.66 (3.65-5.03) M/mm3 Hgb 9.8 L (10.1-14.3) gm/dl Hct 32.6 (30.3-42.9) % Plt Count 261 (140-440) K/mm3 Lymph # 1.3 (1.2-5.4) K/mm3 [place] # 0.5 (0.0-0.8) K/mm3 Eos # 0.1 (0.0-0.4) K/mm3 Baso # 0.0 (0.0-0.1) K/mm3 Comprehensive Metabolic Panel 06/15/19 06/16/19 Range/Units 12:30 10:30 Sodium 134 L (137-145) mmol/L Potassium 4.5 3.7 (3.6-5.0) mmol/L Chloride 96.8 L (98-107) mmol/L Carbon Dioxide 26 (22-30) mmol/L BUN 12 (7-17) mg/dL Creatinine 0.5 L (0.7-1.2) mg/dL Glucose 317 H (65-100) mg/dL Calcium 8.5 (8.4-10.2) mg/dL AST 22 (5-40) units/L ALT 11 (7-56) units/L Alkaline Phosphatase 70 (35-129) units/L Total Protein 6.5 D (6.3-8.2) g/dL Albumin 2.6 L (3.9-5) g/dL - Imaging and Cardiology Echo: report reviewed (04/2018 EF 35% with mild mitral regurgitation mild tricuspid regurgitation and no aortic regurgitation) - Telemetry EKG Rhythm: Sinus Rhythm
[2018-09-06] MEDS: SODIUM CHLORIDE FLUSH SYRINGE 10 ML IV SCH ×2 (15:47→23:48)
[2018-09-06 18:54] LABS: Chol/HDL Ratio 8.08 %
[2018-09-06] MEDS: LANTUS SUB-Q SCH (23:46)
[2018-09-07] MEDS: NEURONTIN PO SCH ×3 (06:32→22:27)
[2018-09-07] MEDS: HumaLOG SUB-Q SCH ×4 (07:25→22:27)
--- NOTE | 2018-09-07 12:26 | Discharge Summary ---
Providers - Providers Date of Admission: 09/05/18 08:57 Attending physician: GENIE BENTLEY MD 09/05/18 08:59 Consult to Physician [CONS] Routine Comment: CLD S GLENNA OFC/LFT CONSULT MSSG W/ANS SVC @[id number] Consulting Provider: DIANNE MANZANARES Physician Instructions: Reason For Exam: congestive heart failure 09/05/18 09:52 Consult to Case Management [CONS] Routine Services Needed at Discharge: Fire Regulator Notified:: CASE MANAGEMENT Occupational Therapy Evaluate and Treat [CONS] Routine Comment: Reason For Exam: ataxia Physical Therapy Evaluation and Treat [CONS] Routine Comment: Reason For Exam: ataxia 09/05/18 10:42 Consult to Mental Health [CONS] Routine Reason For Exam: medication management Place consult to:: mental health Notified:: Roque LEMA Phone number called:: [phone]. [phone] Was contact made?: Yes If yes, [facility]:: [facility] Time called:: 13:09 Primary care physician: ZOILA SIERRA MD Hospitalization Condition: Stable Disposition: DC-01 TO HOME OR SELFCARE Exam - Constitutional Vitals: Temp Pulse Resp BP Pulse Ox 98.5 F 76 18 109/80 100 09/07/18 08:08 09/07/18 08:08 09/07/18 08:08 09/07/18 08:08 09/07/18 08:08 Plan Activity: advance as tolerated, fall precautions Diet: low fat, low cholesterol Special Instructions: record daily weights, record daily BP diary, record blood sugar diary [facility] [Referring] - 3-5 Days Prescriptions: Insulin Glargine [Lantus VIAL] 25 units SUB-Q QHS #30 units Carvedilol [Coreg] 6.25 mg PO BID 30 Days tablet Apixaban [Eliquis] 5 mg PO DAILY #30 tablet Apixaban [Eliquis] 5 mg PO Q12HR #60 tablet Haloperidol [Haldol] 5 mg PO DAILY #30 tablet Furosemide [Lasix TAB] 40 mg PO QDAY 30 Days tablet Metformin HCl [metFORMIN] 1,000 mg PO BID #60 tablet Gabapentin [Neurontin] 100 mg PO BID #60 capsule Gabapentin [Neurontin] 100 mg PO Q8HR #90 capsule
[2018-09-07] MEDS: HALDOL PO SCH (12:32)
[2018-09-07] MEDS: LASIX PO SCH (12:32)
[2018-09-07] MEDS: ELIQUIS PO SCH ×2 (12:32→22:28)
[2018-09-07] MEDS: COREG PO SCH ×2 (12:33→22:27)
[2018-09-07] MEDS: SODIUM CHLORIDE FLUSH SYRINGE 10 ML IV SCH ×2 (12:33→22:28)
--- NOTE | 2018-09-07 14:09 | Consultation ---
History of Present Illness - Reason for Consult Consult date: 09/07/18 Reason for consult: Initial Psyciatric Evaluation - Chief Complaint Chief complaint: " I feel better." - History of Present Psychiatric Illness Patient is a 58 year old female with a PMH of type II diabetes and hypertension. Per record patient is a poor historian. Upon arrival to the hospital patient presented with generalized weakness and shortness of breath. She appeared to have pressurized speech to some degree. She has a PPHx of schizophrenia (2010/ " 8 years ago"). Today the patient is calm and cooperative during the assessment. Patient reports that she has been noncompliant with her psychiatric medications for weeks. Patient states, " Ventura Taylor cleared me of all psychiatric issues and I'm not suppose to be taking any psychiatric medications." She denies anhedonia, lack of motivation, decrease appetite, and decrease sleep. She endorses decrease energy. Also, patient denies SI/HI's, A/VH's, and delusions. Current Psychiatric Medications: " I'm not suppose to be taking any psychiatric medications." Past Psychiatric History: Schizophrenia -2010; Less than 10 previous inpatient psychiatric hospitalizations; No outpatient psychiatrist; no previous suicide attempts. Past Medication Trials: Haldol- "effective" and Risperdal " effective" History of Alcohol/Drug Abuse: Patient denies drug/alcohol abuse. UDS negative. History of Trauma/Abuse: Patient denies history of trauma/abuse. Patient denies sexual, physical, and mental abuse. Social History: Some college; $ 700 per month- monthly income; 1 son/1 daughter- lives in [place]; limited/poor support system; no pending legal issues. Family History of Psychiatric Illness/Substance Abuse: Patient denies. Medications and Allergies Allergies Allergy/AdvReac Type Severity Reaction Status Date / Time No Known Allergies Allergy Unverified 09/05/18 06:20 Home Medications Medication Instructions Recorded Confirmed Last Taken Type Apixaban [Eliquis] 5 mg PO DAILY #30 tablet 09/07/18 Unknown Rx Apixaban [Eliquis] 5 mg PO Q12HR #60 tablet 09/07/18 Unknown Rx Carvedilol [Coreg] 6.25 mg PO BID 30 Days tablet 09/07/18 Unknown Rx Furosemide [Lasix TAB] 40 mg PO QDAY 30 Days tablet 09/07/18 Unknown Rx Gabapentin [Neurontin] 100 mg PO BID #60 capsule 09/07/18 Unknown Rx Gabapentin [Neurontin] 100 mg PO Q8HR #90 capsule 09/07/18 Unknown Rx Haloperidol [Haldol] 5 mg PO DAILY #30 tablet 09/07/18 Unknown Rx Insulin Glargine [Lantus VIAL] 25 units SUB-Q QHS #30 units 09/07/18 Unknown Rx Metformin HCl [metFORMIN] 1,000 mg PO BID #60 tablet 09/07/18 Unknown Rx Active Meds: Active Medications Acetaminophen (Tylenol) 650 mg PO Q4H PRN PRN Reason: Pain MILD(1-3)/Fever >100.5/BREWER Apixaban (Eliquis) 5 mg PO Q12HR [facility]; Protocol Last Admin: 09/07/18 12:32 Dose: 5 mg Documented by: Carvedilol (Coreg) 6.25 mg PO BID [facility] Last Admin: 09/07/18 12:33 Dose: 6.25 mg Documented by: Dextrose (D50w (25gm) Syringe) 50 ml IV PRN PRN PRN Reason: Hypoglycemia Furosemide (Lasix) 40 mg PO QDAY [facility] Last Admin: 09/07/18 12:32 Dose: 40 mg Documented by: Gabapentin (Neurontin) 100 mg PO Q8HR [facility] Last Admin: 09/07/18 06:32 Dose: 100 mg Documented by: Haloperidol (Haldol) 5 mg PO DAILY [facility] Last Admin: 09/07/18 12:32 Dose: 5 mg Documented by: Insulin Glargine (Lantus) 25 units SUB-Q QHS [facility] Last Admin: 09/06/18 23:46 Dose: 25 units Documented by: Insulin Human Lispro (Humalog) 0 unit SUB-Q [facility]; Protocol Last Admin: 09/07/18 12:44 Dose: 6 unit Documented by: Ondansetron HCl (Zofran) 4 mg IV Q8H PRN PRN Reason: Nausea And Vomiting Sodium Chloride (Sodium Chloride Flush Syringe 10 Ml) 10 ml IV BID [facility] Last Admin: 09/07/18 12:33 Dose: 10 ml Documented by: Sodium Chloride (Sodium Chloride Flush Syringe 10 Ml) 10 ml IV PRN PRN PRN Reason: LINE FLUSH Last Admin: 09/05/18 22:44 Dose: 10 ml Documented by: Mental Status Exam - Vital signs Last Vital Signs Temp 98.5 F 09/07/18 08:08 Pulse 76 09/07/18 08:08 Resp 18 09/07/18 08:08 BP 148/55 09/07/18 12:33 Pulse Ox 100 09/07/18 08:08 - Exam Narrative exam: Mental Status Exam: Appearance: calm, cooperative- hospital gown Behavior: intermittent eye contact Speech: pressured speech Mood: " I feel better" Affect: congruent with mood Thought Process: circumstantial Thought Content: denies SI/HI's, AVH's, and delusions Cognition: A/O x 3 Insight: variable Judgment: variable Results Result Diagrams: 09/06/18 10:30 09/06/18 10:30 Abnormal lab results 09/05/18 09/05/18 09/06/18 Range/Units 06:26 06:26 14:23 POC Glucose (70-105) Hemoglobin A1c 13.1 H (4-6) % Lactic Acid 3.40 H* (0.7-2.0) mmol/L HDL Cholesterol 12 L (40-59) mg/dL 09/06/18 09/06/18 09/06/18 Range/Units 16:33 17:08 20:05 POC Glucose 220 H (70-105) Hemoglobin A1c (4-6) % Lactic Acid 3.30 H* 2.40 H* (0.7-2.0) mmol/L HDL Cholesterol (40-59) mg/dL 09/06/18 09/06/18 09/07/18 Range/Units 21:25 21:41 08:15 POC Glucose 207 H 188 H (70-105) Hemoglobin A1c (4-6) % Lactic Acid 2.70 H* (0.7-2.0) mmol/L HDL Cholesterol (40-59) mg/dL 09/07/18 Range/Units 11:40 POC Glucose 264 H (70-105) Hemoglobin A1c (4-6) % Lactic Acid (0.7-2.0) mmol/L HDL Cholesterol (40-59) mg/dL All other labs normal. Assessment and Plan Assessment and plan: Impression: PPHx schizophrenia.Today the patient is calm and cooperative during the assessment. Patient denies SI/HI's, A/VH's, and delusions. UDS negative. Recommendation/Plan: 1. Will reassess in 24 hours. 2. Attempt to gain collateral to determine proper disposition. 3. Continue Haldol 5mg po QAM psychosis. Discussed possible metabolic side effects. Patient verbalizes understanding. Disposition: Will follow-up with patient in 24 hours. Medication management. Will staff with Dr. Mike Griffin.
--- NOTE | 2018-09-07 14:38 | Progress Note ---
Assessment and Plan Assessment: Acute on chronic systolic heart failure Uncontrolled diabetes Suspected sepsis with elevated lactate Hyperkalemia Renal sufficiency acute on chronic Schizophrenia Hypertension Hyperlipidemia Right arm DVT Plan: Pt appears to be nearing/at euvolemia. Currently stable cardiac status. Can consider addition of ACEI/ARB if BPs permit. Pt may discharge home from cardiology standpoint. Recommend pt follow up in our office with Dr. King within 3-5 days of hospital discharge ([phone]). The patient has been seen in conjunction with Dr. Brennen Martinez who agrees with the assessment and plan of care. Subjective Date of service: 09/07/18 Principal diagnosis: chf Interval history: pt resting in bed, laying flat comfortably, no current complaints. Objective Last Vital Signs Temp 98.5 F 09/07/18 08:08 Pulse 76 09/07/18 08:08 Resp 18 09/07/18 08:08 BP 148/55 09/07/18 12:33 Pulse Ox 100 09/07/18 08:08 - Physical Examination General: Appears Well, No Apparent Distress HEENT: Positive: PERRL Neck: Positive: neck supple Cardiac: Positive: Reg Rate and Rhythm, S1/S2 Lungs: Positive: Decreased Breath Sounds Neuro: Positive: Grossly Intact Abdomen: Positive: Soft /Rectal: Normal Prostate, No Masses Skin: Musculoskeletal: No Fluid Collection, No Pain, Normal Range of Motion Gait: Normal Gait Extremities: - Labs and Meds Lipids 09/05/18 Range/Units 06:26 Triglycerides 65 (2-149) mg/dL Cholesterol 97 (50-199) mg/dL HDL Cholesterol 12 L (40-59) mg/dL Cholesterol/HDL Ratio 8.08 % - Imaging and Cardiology Echo: report reviewed (04/2018 EF 35% with mild mitral regurgitation mild tricuspid regurgitation and no aortic regurgitation)
--- NOTE | 2018-09-07 15:34 | Progress Note ---
Assessment and Plan Assessment and plan: 58 Year old female presenting to the ED via EMS with complaints of 1 week duration of generalized body pain, reportedly has been out of metformin for about a week. She was noted to have Blood glucose of over 400 on presentation with lactic acid of 7 and no clinical indication of sepsis or infectious proc ess. Patient is unable to provide me any adequate information on the reports that she moved to [place] 3 years ago to stay with family and and the [place] for 3 years and has not been unable to get in touch with her children who live in [place]. She reports that for the past 1 week she has been having generalized body pain in the family she stays with have not been able to provide her medications de spite her given the money to buy the medication. Unfortunately there is nobody presents here with her. My information became to light following my evaluation of the patient as documented by cardiology. An noted below. ...history of schizophrenia was at [facility] after being transfer red from [facility] for inpatient psychiatry patient is found to have moderate LV dysfunction on echocardiogram EF 35% with mild mitral regurgitation mild tricuspid regurgitation and no aortic regurgitation 04/2018 and patient was treated medically with beta blockers CRISTINA inhibitor and diuretics patient is also on psychiatric medicine for inpatient care. Patient is also an uncontrolled diabetic troponins there were elevated but here are negative. Patient is a poor historian and history is obtained from EMS and hospitalization at [place]. Patient states some hurting all over and found elevated blood sugar and elevated lactic acid level unclear source of infection patient is on broad-spectrum antibiotics. Patient also has some shortness of breath and treated for acute systolic heart failure. Denies any chest pain nausea vomiting or syncope. since discharge from [place], pt is placed on eliquis for right upper arm dvt * Patient was treated with lasix IV and converted to PO, ARB and ACEI was held due to low BP * Psych was consulted to help evaluate the patient due to above noted mental h ealth treatment from [facility] * Blood glucose and lactic acidosis improving ACUTE ON CHRONIC presumed combined Systolic AND Diastolic Congestive heart failure Hyperosmolar Non-Ketotic Hyperglycemia Generalized weakness DM type 2 uncontrolled Lactic Acidosis Elevated AST ?Bipolar disorder Bilateral Pleural effusion Neuropathy Secondary hypercoagulable state Hyperkalemia PLAN Continue supportive care Cardiology consult and noted Continue Diuresis but change to PO Patient reports she is homeless and women halfway has been found and she can be discharged in AM if cleared by Pysch Await Mental Health evaluation CM following Psych consult for possible med management or initiation Patient vehemently refuses CT scan understands that the elevation of lactic acid could indicate ischemia and the associated risk ?why elevated INR DVT/GI prophy History Interval history: Patient seen and examined, Resting comfortable in no acute distress. Hospitalist Physical - Physical exam Narrative exam: VITAL SIGNS: Reviewed. GENERAL: The patient appeared well nourished and normally developed, Vital signs as documented. HEAD: No signs of head trauma. EYES: Pupils are equal. Extraocular motions intact. EARS: Hearing grossly intact. MOUTH: Oropharynx is normal. NECK: No adenopathy, no JVD. CHEST: Chest with clear breath sounds bilaterally. No wheezes, rales, or rhonchi. CARDIAC: Regular rate and rhythm. S1 and S2, without murmurs, gallops, or rubs. VASCULAR: No Edema. Peripheral pulses normal and equal in all extremities. ABDOMEN: Soft, non tender and non distended. No rebound or guarding, and no masses palpated. Bowel Sounds normal. MUSCULOSKELETAL: Good range of motion of all major joints. Extremities without clubbing, cyanosis or edema. NEUROLOGIC EXAM: Alert and oriented x 2 speech is scattered and often tangential No focal sensory or strength deficits. Speech normal. Follows commands. PSYCHIATRIC: Mood normal. SKIN: No rash or lesions. - Constitutional Vitals: Temp Pulse Resp BP Pulse Ox 98.5 F 76 18 148/55 100 09/07/18 08:08 09/07/18 08:08 09/07/18 08:08 09/07/18 12:33 09/07/18 08:08 Results - Labs CBC & Chem 7: 09/06/18 10:30 09/06/18 10:30 Labs: Laboratory Last Values WBC 4.7 K/mm3 (4.5-11.0) 09/06/18 10:30 RBC 4.66 M/mm3 (3.65-5.03) 09/06/18 10:30 Hgb 9.8 gm/dl (10.1-14.3) L 09/06/18 10:30 Hct 32.6 % (30.3-42.9) 09/06/18 10:30 MCV 70 fl (79-97) L 09/06/18 10:30 MCH 21 pg (28-32) L 09/06/18 10:30 MCHC 30 % (30-34) 09/06/18 10:30 RDW 21.3 % (13.2-15.2) H 09/06/18 10:30 Plt Count 261 K/mm3 (140-440) 09/06/18 10:30 Lymph % (Auto) 28.1 % (13.4-35.0) 09/06/18 10:30 Dare % (Auto) 11.6 % (0.0-7.3) H 09/06/18 10:30 Eos % (Auto) 2.0 % (0.0-4.3) 09/06/18 10:30 Baso % (Auto) 0.6 % (0.0-1.8) 09/06/18 10:30 Lymph # 1.3 K/mm3 (1.2-5.4) 09/06/18 10:30 Dare # 0.5 K/mm3 (0.0-0.8) 09/06/18 10:30 Eos # 0.1 K/mm3 (0.0-0.4) 09/06/18 10:30 Baso # 0.0 K/mm3 (0.0-0.1) 09/06/18 10:30 Seg Neutrophils % 57.7 % (40.0-70.0) 09/06/18 10:30 Seg Neutrophils # 2.7 K/mm3 (1.8-7.7) 09/06/18 10:30 PT 23.8 Sec. (12.2-14.9) H 09/05/18 06:34 INR 2.18 (0.87-1.13) H 09/05/18 06:34 APTT 31.2 Sec. (24.2-36.6) 09/05/18 06:34 Sodium 134 mmol/L (137-145) L 09/06/18 10:30 Potassium 3.7 mmol/L (3.6-5.0) 09/06/18 10:30 Chloride 96.8 mmol/L (98-107) L 09/06/18 10:30 Carbon Dioxide 26 mmol/L (22-30) 09/06/18 10:30 15 mmol/L 09/06/18 10:30 BUN 12 mg/dL (7-17) 09/06/18 10:30 0.5 mg/dL (0.7-1.2) L 09/06/18 10:30 Estimated GFR > 60 ml/min 09/06/18 10:30 24 % 09/06/18 10:30 Glucose 317 mg/dL (65-100) H 09/06/18 10:30 POC Glucose 264 (70-105) H 09/07/18 11:40 13.1 % (4-6) H 09/05/18 06:26 Lactic Acid 1.90 mmol/L (0.7-2.0) 09/06/18 23:53 Calcium 8.5 mg/dL (8.4-10.2) 09/06/18 10:30 Magnesium 2.10 mg/dL (1.7-2.3) 09/05/18 06:26 0.90 mg/dL (0.1-1.2) 09/06/18 10:30 0.4 mg/dL (0-0.2) H 09/05/18 06:26 0.6 mg/dL 09/05/18 06:26 AST 22 units/L (5-40) 09/06/18 10:30 ALT 11 units/L (7-56) 09/06/18 10:30 70 units/L (35-129) 09/06/18 10:30 26.0 umol/L (25-60) 09/05/18 06:34 62 units/L (30-135) 09/05/18 06:26 TNR 09/05/18 06:26 CK-MB (CK-2) 1.7 ng/mL (0.0-4.0) 09/05/18 06:26 CK-MB (CK-2) TNR 09/05/18 06:26 CK-MB (CK-2) Rel Index 2.7 (0-4) 09/05/18 06:26 CK-MB (CK-2) Rel Index TNR 09/05/18 06:26 < 0.010 ng/mL (0.00-0.029) 09/05/18 06:26 NT-Pro-B Natriuret Pep 12976 pg/mL (0-900) H 09/05/18 06:26 6.5 g/dL (6.3-8.2) D 09/06/18 10:30 2.6 g/dL (3.9-5) L 09/06/18 10:30 0.7 % 09/06/18 10:30 Triglycerides 65 mg/dL (2-149) 09/05/18 06:26 Cholesterol 97 mg/dL (50-199) 09/05/18 06:26 76 mg/dL (50-130) 09/05/18 06:26 12 mg/dL (40-59) L 09/05/18 06:26 8.08 % 09/05/18 06:26 Straw (Yellow) 09/05/18 11:45 Clear (Clear) 09/05/18 11:45 7.0 (5.0-7.0) 09/05/18 11:45 Ur Specific Bally 1.005 (1.003-1.030) 09/05/18 11:45 <15 mg/dl mg/dL (Negative) 09/05/18 11:45 50 mg/dL (Negative) 09/05/18 11:45 Neg mg/dL (Negative) 09/05/18 11:45 Neg (Negative) 09/05/18 11:45 Neg (Negative) 09/05/18 11:45 Neg (Negative) 09/05/18 11:45 < 2.0 mg/dL (<2.0) 09/05/18 11:45 Ur Leukocyte Esterase Neg (Negative) 09/05/18 11:45 < 1.0 /HPF (0.0-6.0) 09/05/18 11:45 1.0 /HPF (0.0-6.0) 09/05/18 11:45 U Epithel Cells (Auto) < 1.0 /HPF (0-13.0) 09/05/18 11:45 1+ /HPF (Negative) 09/05/18 11:45 Amorphous Crystals Few 09/05/18 11:45 Few /HPF 09/05/18 11:45 Presumptive negative 09/05/18 11:45 Presumptive negative 09/05/18 11:45 Ur Barbiturates Screen Presumptive negative 09/05/18 11:45 Ur Phencyclidine Scrn Presumptive negative 09/05/18 11:45 Ur Amphetamines Screen Presumptive negative 09/05/18 11:45 U Benzodiazepines Scrn Presumptive negative 09/05/18 11:45 Presumptive negative 09/05/18 11:45 U Marijuana (THC) Screen Presumptive negative 09/05/18 11:45 Disclamer 09/05/18 11:45 Plasma/Serum Alcohol < 0.01 % (0-0.07) 09/05/18 06:26 Active Medications - Current Medications Current Medications: Generic Name Dose Route Start Last Admin Trade Name Freq PRN Reason Stop Dose Admin Acetaminophen 650 mg 09/05/18 08:59 Tylenol PO Q4H PRN Pain MILD(1-3)/Fever >100.5/BREWER Apixaban 5 mg 09/05/18 10:00 09/07/18 12:32 Eliquis PO 5 mg Q12HR BLANQUITA Administration Protocol Carvedilol 6.25 mg 09/05/18 22:00 09/07/18 12:33 Coreg PO 6.25 mg BID BLANQUITA Administration Dextrose 50 ml 09/05/18 09:04 D50w (25gm) Syringe IV PRN PRN Hypoglycemia Furosemide 40 mg 09/07/18 10:00 09/07/18 12:32 Lasix PO 40 mg QDAY BLANQUITA Administration Gabapentin 100 mg 09/05/18 14:00 09/07/18 14:41 Neurontin PO 100 mg Q8HR BLANQUITA Administration Haloperidol 5 mg 09/06/18 10:00 09/07/18 12:32 Haldol PO 5 mg DAILY BLANQUITA Administration Insulin Glargine 25 units 09/06/18 22:00 09/06/18 23:46 Lantus SUB-Q 25 units QHS BLANQUITA Administration Insulin Human Lispro 0 unit 09/05/18 11:30 09/07/18 12:44 Humalog SUB-Q 6 unit ACHS BLANQUITA Administration Protocol Ondansetron HCl 4 mg 09/05/18 08:59 Zofran IV Q8H PRN Nausea And Vomiting Sodium Chloride 10 ml 09/05/18 10:00 09/07/18 12:33 Sodium Chloride Flush Syringe 10 Ml IV 10 ml BID BLANQUITA Administration Sodium Chloride 10 ml 09/05/18 08:59 09/05/18 22:44 Sodium Chloride Flush Syringe 10 Ml IV 10 ml PRN PRN Administration LINE FLUSH
[2018-09-07] MEDS: LANTUS SUB-Q SCH (22:27)
[2018-09-08] MEDS: MUCINEX ER PO SCH ×2 (04:02→11:36)
[2018-09-08] MEDS: NEURONTIN PO SCH ×2 (06:41→13:19)
[2018-09-08] MEDS: HumaLOG SUB-Q SCH ×2 (08:44→13:22)
--- NOTE | 2018-09-08 11:29 | Discharge Summary ---
Providers - Providers Date of Admission: 09/05/18 08:57 Date of discharge: 09/08/18 Attending physician: TALIB WRIGHT 09/05/18 08:59 Consult to Physician [CONS] Routine Comment: CLD S GLENNA OFC/LFT CONSULT MSSG W/ANS SVC @[id number] Consulting Provider: DIANNE MANZANARES Physician Instructions: Reason For Exam: congestive heart failure 09/05/18 09:52 Consult to Case Management [CONS] Routine Services Needed at Discharge: Software Configuration Analyst Notified:: CASE MANAGEMENT Occupational Therapy Evaluate and Treat [CONS] Routine Comment: Reason For Exam: ataxia Physical Therapy Evaluation and Treat [CONS] Routine Comment: Reason For Exam: ataxia 09/05/18 10:42 Consult to Mental Health [CONS] Routine Reason For Exam: medication management Place consult to:: mental health Notified:: Roque LEMA Phone number called:: [phone]. [phone] Was contact made?: Yes If yes, spoke with:: [facility] Time called:: 13:09 Primary care physician: ZOILA SIERRA MD Hospitalization Condition: Stable Hospital course: Patient is a 58 yo woman with a history of bipolar disorder, Schizophrenia, RUE DVT on Eliquis, type 2 DM with peripheral neuropathy and hypertension with systolic CHF EF 35% who presented with general body pains and needing medications refills. Discharge Diagnoses: Acute on chronic systolic heart failure Hyperkalemia Renal sufficiency acute on chronic stage 3, tubular stasis, poa Schizophrenia with suspected Bipolar disorder Hypertension Hyperlipidemia Right arm DVT Hyperosmolar Non-Ketotic Hyperglycemia DM type 2 uncontrolled,a1c 13.1, she refuses Insulin and refutes that Metformin is not working Lactic Acidosis, non infectious Elevated AST Bilateral Pleural effusion Peripheral Neuropathy with DM type 2 complications Secondary hypercoagulable state Disposition: DC- TO HOME OR SELFCARE Core Measure Documentation - Palliative Care Palliative Care/ Comfort Measures: Not Applicable - Core Measures Any of the following diagnoses?: heart failure - VTE Discharge Requirements Deep Vein Thrombosis/Pulmonary Embolism Present on Admission: No Has pt received <5 days of overlap therapy or INR<2.0: No Anticoagulant overlap therapy prescribed at discharge: No Contraindication No Overlap Therapy order at DC: Not Indicated - Heart Failure Discharge Requirements CRISTINA/ARB for LVSD if EF <40%: Yes Beta syed at discharge: Yes Exam - Physical Exam Narrative exam: Gen: WDWN, NAD, Awake, Alert, Orientated HEENT: NCAT, alopecia, EOMI, PERRL, OP Clear Neck: supple, no adenopathy, no thyromegaly, no JVD CVS/Heart: RRR, normal S1S2, pulses present bilaterally Chest/Lungs: CTA B, Symmetrical chest expansion, good air entry bilaterally GI/Abdomen: soft, NTND, good bowel sounds, no guarding or rebound /Bladder: no suprapubic tenderness, no CVA or paraspinal tenderness Extermity/Skin: no c/c/e, no obvious rash MSK: FROM x 4 Neuro: CN 2-12 grossly intact, no new focal deficits Psych: calm, denies SI - Constitutional Vitals: Temp Pulse Resp BP Pulse Ox 99.1 F 90 16 148/92 100 09/08/18 09:04 09/08/18 09:04 09/08/18 09:04 09/08/18 09:04 09/08/18 09:04 Plan Activity: other (no strenous activity unless cleared by Cardiology) Diet: low salt, diabetic Special Instructions: record daily BP diary, record blood sugar diary (check blood sugar with each meal) [facility] [Referring] - 3-5 Days ZAHRA ARENAS MD [Staff Physician] - 3 Days Prescriptions: Insulin Glargine [Lantus VIAL] 25 units SUB-Q QHS #30 units Carvedilol [Coreg] 6.25 mg PO BID 30 Days tablet Apixaban [Eliquis] 5 mg PO DAILY #30 tablet Apixaban [Eliquis] 5 mg PO Q12HR #60 tablet Haloperidol [Haldol] 5 mg PO DAILY #30 tablet Furosemide [Lasix TAB] 40 mg PO QDAY 30 Days tablet Metformin HCl [metFORMIN] 1,000 mg PO BID #60 tablet Gabapentin [Neurontin] 100 mg PO BID #60 capsule Gabapentin [Neurontin] 100 mg PO Q8HR #90 capsule
[2018-09-08] MEDS: LASIX PO SCH (11:35)
[2018-09-08] MEDS: ELIQUIS PO SCH (11:36)
[2018-09-08] MEDS: COREG PO SCH (11:36)
[2018-09-08 11:37] VITALS: BP 139/81
[2018-09-08] MEDS: HALDOL PO SCH (11:37)
--- NOTE | 2018-09-08 11:37 | Progress Note ---
Assessment and Plan Assessment and plan: Patient is a 58 yo woman with a history of bipolar disorder, Schizophrenia, RUE DVT on Eliquis, type 2 DM with peripheral neuropathy and hypertension with systolic CHF EF 35% who presented with general body pains and needing medications refills. Acute on chronic systolic heart failure: add ARB/CRISTINA inhibitor Hyperkalemia, resolved Renal insufficiency acute on chronic stage 3, tubular stasis, poa, resolved Schizophrenia with suspected Bipolar disorder: Mental health team following. Hypertension: continue Coreg Right arm DVT: on Eliquis Hyperosmolar Non-Ketotic Hyperglycemia: she is refusing to take Insulin outside of the hospital Severe malnutrition, poa: Well [employer] on dietary choices, she doesn't want Paper Maker DM type 2 uncontrolled,a1c 13.1, she refuses Insulin and refutes that Metformin is not working Lactic Acidosis, non infectious Peripheral Neuropathy with DM type 2 complications: on Neurontin Secondary hypercoagulable state: on Eliquis Disposition: continue inpatient care, patient is homeless, issues with placement History Interval history: Patient was seen and examined. Follow-up on current diagnosis of CHF. No overnight events reported to me. Patient denies any chest pain, shortness breath, nausea/vomiting or severe headaches. Imaging, nursing note, chart, labs and old chart reviewed. Discussed with patient. Hospitalist Physical - Physical exam Narrative exam: Gen: WDWN, NAD, Awake, Alert, Orientated HEENT: NCAT, alopecia, EOMI, PERRL, OP Clear Neck: supple, no adenopathy, no thyromegaly, no JVD CVS/Heart: RRR, normal S1S2, pulses present bilaterally Chest/Lungs: CTA B, Symmetrical chest expansion, good air entry bilaterally GI/Abdomen: soft, NTND, good bowel sounds, no guarding or rebound /Bladder: no suprapubic tenderness, no CVA or paraspinal tenderness Extermity/Skin: no c/c/e, no obvious rash MSK: FROM x 4 Neuro: CN 2-12 grossly intact, no new focal deficits Psych: calm, denies SI - Constitutional Vitals: Temp Pulse Resp BP Pulse Ox 99.1 F 85 18 135/81 100 09/08/18 09:04 09/08/18 11:34 09/08/18 11:34 09/08/18 11:34 09/08/18 11:34 Results - Labs CBC & Chem 7: 09/06/18 10:30 09/06/18 10:30 Labs: Laboratory Last Values WBC 4.7 K/mm3 (4.5-11.0) 09/06/18 10:30 RBC 4.66 M/mm3 (3.65-5.03) 09/06/18 10:30 Hgb 9.8 gm/dl (10.1-14.3) L 09/06/18 10:30 Hct 32.6 % (30.3-42.9) 09/06/18 10:30 MCV 70 fl (79-97) L 09/06/18 10:30 MCH 21 pg (28-32) L 09/06/18 10:30 MCHC 30 % (30-34) 09/06/18 10:30 RDW 21.3 % (13.2-15.2) H 09/06/18 10:30 Plt Count 261 K/mm3 (140-440) 09/06/18 10:30 Lymph % (Auto) 28.1 % (13.4-35.0) 09/06/18 10:30 [place] % (Auto) 11.6 % (0.0-7.3) H 09/06/18 10:30 Eos % (Auto) 2.0 % (0.0-4.3) 09/06/18 10:30 Baso % (Auto) 0.6 % (0.0-1.8) 09/06/18 10:30 Lymph # 1.3 K/mm3 (1.2-5.4) 09/06/18 10:30 [place] # 0.5 K/mm3 (0.0-0.8) 09/06/18 10:30 Eos # 0.1 K/mm3 (0.0-0.4) 09/06/18 10:30 Baso # 0.0 K/mm3 (0.0-0.1) 09/06/18 10:30 Seg Neutrophils % 57.7 % (40.0-70.0) 09/06/18 10:30 Seg Neutrophils # 2.7 K/mm3 (1.8-7.7) 09/06/18 10:30 PT 23.8 Sec. (12.2-14.9) H 09/05/18 06:34 INR 2.18 (0.87-1.13) H 09/05/18 06:34 APTT 31.2 Sec. (24.2-36.6) 09/05/18 06:34 Sodium 134 mmol/L (137-145) L 09/06/18 10:30 Potassium 3.7 mmol/L (3.6-5.0) 09/06/18 10:30 Chloride 96.8 mmol/L (98-107) L 09/06/18 10:30 Carbon Dioxide 26 mmol/L (22-30) 09/06/18 10:30 15 mmol/L 09/06/18 10:30 BUN 12 mg/dL (7-17) 09/06/18 10:30 0.5 mg/dL (0.7-1.2) L 09/06/18 10:30 Estimated GFR > 60 ml/min 09/06/18 10:30 24 % 09/06/18 10:30 Glucose 317 mg/dL (65-100) H 09/06/18 10:30 POC Glucose 248 (70-105) H 09/08/18 07:38 13.1 % (4-6) H 09/05/18 06:26 Lactic Acid 1.90 mmol/L (0.7-2.0) 09/06/18 23:53 Calcium 8.5 mg/dL (8.4-10.2) 09/06/18 10:30 Magnesium 2.10 mg/dL (1.7-2.3) 09/05/18 06:26 0.90 mg/dL (0.1-1.2) 09/06/18 10:30 0.4 mg/dL (0-0.2) H 09/05/18 06:26 0.6 mg/dL 09/05/18 06:26 AST 22 units/L (5-40) 09/06/18 10:30 ALT 11 units/L (7-56) 09/06/18 10:30 70 units/L (35-129) 09/06/18 10:30 26.0 umol/L (25-60) 09/05/18 06:34 62 units/L (30-135) 09/05/18 06:26 TNR 09/05/18 06:26 CK-MB (CK-2) 1.7 ng/mL (0.0-4.0) 09/05/18 06:26 CK-MB (CK-2) TNR 09/05/18 06:26 CK-MB (CK-2) Rel Index 2.7 (0-4) 09/05/18 06:26 CK-MB (CK-2) Rel Index TNR 09/05/18 06:26 < 0.010 ng/mL (0.00-0.029) 09/05/18 06:26 NT-Pro-B Natriuret Pep 35365 pg/mL (0-900) H 09/05/18 06:26 6.5 g/dL (6.3-8.2) D 09/06/18 10:30 2.6 g/dL (3.9-5) L 09/06/18 10:30 0.7 % 09/06/18 10:30 Triglycerides 65 mg/dL (2-149) 09/05/18 06:26 Cholesterol 97 mg/dL (50-199) 09/05/18 06:26 76 mg/dL (50-130) 09/05/18 06:26 12 mg/dL (40-59) L 09/05/18 06:26 8.08 % 09/05/18 06:26 Straw (Yellow) 09/05/18 11:45 Clear (Clear) 09/05/18 11:45 7.0 (5.0-7.0) 09/05/18 11:45 Ur Specific [place] 1.005 (1.003-1.030) 09/05/18 11:45 <15 mg/dl mg/dL (Negative) 09/05/18 11:45 50 mg/dL (Negative) 09/05/18 11:45 Neg mg/dL (Negative) 09/05/18 11:45 Neg (Negative) 09/05/18 11:45 Neg (Negative) 09/05/18 11:45 Neg (Negative) 09/05/18 11:45 < 2.0 mg/dL (<2.0) 09/05/18 11:45 Ur Leukocyte Esterase Neg (Negative) 09/05/18 11:45 < 1.0 /HPF (0.0-6.0) 09/05/18 11:45 1.0 /HPF (0.0-6.0) 09/05/18 11:45 U Epithel Cells (Auto) < 1.0 /HPF (0-13.0) 09/05/18 11:45 1+ /HPF (Negative) 09/05/18 11:45 Amorphous Crystals Few 09/05/18 11:45 Few /HPF 09/05/18 11:45 Presumptive negative 09/05/18 11:45 Presumptive negative 09/05/18 11:45 Ur Barbiturates Screen Presumptive negative 09/05/18 11:45 Ur Phencyclidine Scrn Presumptive negative 09/05/18 11:45 Ur Amphetamines Screen Presumptive negative 09/05/18 11:45 U Benzodiazepines Scrn Presumptive negative 09/05/18 11:45 Presumptive negative 09/05/18 11:45 U Marijuana (THC) Screen Presumptive negative 09/05/18 11:45 Disclamer 09/05/18 11:45 Plasma/Serum Alcohol < 0.01 % (0-0.07) 09/05/18 06:26 Active Medications - Current Medications Current Medications: Generic Name Dose Route Start Last Admin Trade Name Freq PRN Reason Stop Dose Admin Acetaminophen 650 mg 09/05/18 08:59 Tylenol PO Q4H PRN Pain MILD(1-3)/Fever >100.5/BREWER Apixaban 5 mg 09/05/18 10:00 09/07/18 22:28 Eliquis PO 5 mg Q12HR BLANQUITA Administration Protocol Carvedilol 6.25 mg 09/05/18 22:00 09/07/18 22:27 Coreg PO 6.25 mg BID BLANQUITA Administration Dextrose 50 ml 09/05/18 09:04 D50w (25gm) Syringe IV PRN PRN Hypoglycemia Furosemide 40 mg 09/07/18 10:00 09/07/18 12:32 Lasix PO 40 mg QDAY BLANQUITA Administration Gabapentin 100 mg 09/05/18 14:00 09/08/18 06:41 Neurontin PO 100 mg Q8HR BLANQUITA Administration Guaifenesin 600 mg 09/07/18 23:00 09/08/18 04:02 Mucinex Er PO 600 mg BID BLANQUITA Administration Haloperidol 5 mg 09/06/18 10:00 09/07/18 12:32 Haldol PO 5 mg DAILY BLANQUITA Administration Insulin Glargine 25 units 09/06/18 22:00 09/07/18 22:27 Lantus SUB-Q 25 units QHS BLANQUITA Administration Insulin Human Lispro 0 unit 09/05/18 11:30 09/08/18 08:44 Humalog SUB-Q 4 unit ACHS BLANQUITA Administration Protocol Ondansetron HCl 4 mg 09/05/18 08:59 Zofran IV Q8H PRN Nausea And Vomiting Sodium Chloride 10 ml 09/05/18 10:00 09/07/18 22:28 Sodium Chloride Flush Syringe 10 Ml IV 10 ml BID BLANQUITA Administration Sodium Chloride 10 ml 09/05/18 08:59 09/05/18 22:44 Sodium Chloride Flush Syringe 10 Ml IV 10 ml PRN PRN Administration LINE FLUSH
[2018-09-08] MEDS: SODIUM CHLORIDE FLUSH SYRINGE 10 ML IV SCH (11:40)
[2018-09-08] MEDS ORDERED: ZESTRIL PO SCH (12:00)
--- NOTE | 2018-09-08 14:35 | Progress Note ---
Subjective - Reason for Consult Consult date: 09/08/18 Mental Status Exam - Vital signs Last Vital Signs Temp 99.1 F 09/08/18 09:04 Pulse 85 09/08/18 11:34 Resp 18 09/08/18 11:34 BP 139/81 09/08/18 11:36 Pulse Ox 100 09/08/18 11:34
== END 2018-09-08 14:45 | disposition home or self-care (01) | DRG 682 ==
LOC: ED 06:10 → 4A 08:57
PROVIDERS: ADMIT Internal Medicine; ATTEND Internal Medicine
DX: N17.0 Acute kidney failure with tubular necrosis (principal); E11.00 Type 2 diabetes mellitus with hyperosmolarity without nonketotic hyperglycemic-hyperosmolar coma (NKHHC); I50.43 Acute on chronic combined systolic (congestive) and diastolic (congestive) heart failure; E43 Unspecified severe protein-calorie malnutrition; E87.2 Acidosis; D68.69 Other thrombophilia; I13.0 Hypertensive heart and chronic kidney disease with heart failure and stage 1 through stage 4 chronic kidney disease, or unspecified chronic kidney disease; E87.5 Hyperkalemia; E11.65 Type 2 diabetes mellitus with hyperglycemia; I08.3 Combined rheumatic disorders of mitral, aortic and tricuspid valves; I25.10 Atherosclerotic heart disease of native coronary artery without angina pectoris; E78.5 Hyperlipidemia, unspecified; E11.40 Type 2 diabetes mellitus with diabetic neuropathy, unspecified; E11.22 Type 2 diabetes mellitus with diabetic chronic kidney disease; F20.9 Schizophrenia, unspecified; N18.3 Chronic kidney disease, stage 3 (moderate); E11.42 Type 2 diabetes mellitus with diabetic polyneuropathy; Z86.718 Personal history of other venous thrombosis and embolism; Z68.31 Body mass index [BMI] 31.0-31.9, adult; Z79.84 Long term (current) use of oral hypoglycemic drugs
CPT/HCPCS: 36415; 71045; 80048; 80053; 80061; 80076; 80307; 80320; 81001; 82140; 82550; 82553; 82962; 83036; 83735; 83880; 84132; 84484; 85025; 85610; 85730; 87040; 87086; 93005; 93010; 94760; G0378; G0480; J0610; J1815; J1940; J2060; J2185; J3370; J7030; J7040; J7050